=== PATIENT | female | born 1970 ===

== ENCOUNTER 2020-02-09 06:00 | Day surgery (SDC) | payer OTHER ==
[2020-02-09] MEDS ORDERED: CARAFATE1 GM PO (07:59)
[2020-02-09] MEDS ORDERED: PROTONIX40 MG PO (07:59)
== END 2020-02-09 09:20 | disposition home or self-care (01) ==
LOC: AMB-ENDOS 06:00 → ADM 14:30
PROVIDERS: ATTEND Surgery
DX: K29.50 Unspecified chronic gastritis without bleeding (principal); K21.0 Gastro-esophageal reflux disease with esophagitis; K44.9 Diaphragmatic hernia without obstruction or gangrene